=== PATIENT | female | born 1975 | race Caucasian/White ===

== ENCOUNTER 2019-05-16 15:33 | Emergency (ER) | payer OTHER ==
--- NOTE | 2019-05-16 16:45 | XRAY Report ---
Reason: Chest pain Procedure Date: 05/16/2019 Accession Number: [id number] / [id number] Procedure: XR - Chest 1 View X-Ray CPT Code: 59819 Final Report FULL RESULT: EXAM: CHEST RADIOGRAPHY EXAM DATE: 05/16/2019 04:37 PM. CLINICAL HISTORY: Chest pain. COMPARISON: CHEST 2 VIEW PA/LAT 09/20/2015 7:22 AM. TECHNIQUE: 1 view. FINDINGS: Lungs/Pleura: No focal opacities evident. No pleural effusion. No pneumothorax. Mediastinum: Within exam limitations, the cardiomediastinal contour is normal. Other: None. IMPRESSION: Normal single view chest. RADIA
[2019-05-16 17:05] LABS: BASOPHILS # (AUTO) 0.1 10^3/uL (0.0-0.1); BASOPHILS % (AUTO) 0.8 %; EOSINOPHILS # (AUTO) 0.1 10^3/uL (0.0-0.7); EOSINOPHILS % (AUTO) 1.1 %; HGB - HEMOGLOBIN 14.5 g/dL (12.0-16.0); LYMPHOCYTES # (AUTO) 2.3 10^3/uL (1.5-3.5); LYMPHOCYTES % (AUTO) 36.7 %; MEAN CORPUSCULAR HEMOGLOBIN 29.1 pg (27.0-31.0); MEAN CORPUSCULAR HGB CONC 32.7 g/dL (32.0-36.0); MEAN CORPUSCULAR VOLUME 88.8 fL (81.0-99.0); MEAN PLATELET VOLUME 11.9 fL (7.9-10.8); MONOCYTES # (AUTO) 0.5 10^3/uL (0.0-1.0); MONOCYTES % (AUTO) 7.1 %; NEUTROPHILS # (AUTO) 3.5 10^3/uL (1.5-6.6); NEUTROPHILS % (AUTO) 54.1 %; RED BLOOD COUNT 4.99 10^6/uL (4.20-5.40); RED CELL DISTRIBUTION WIDTH 12.5 % (12.0-15.0); WHITE BLOOD COUNT 6.4 x10^3/uL (4.8-10.8)
[2019-05-16 17:23] LABS: ALBUMIN 4.5 g/dL (3.2-5.5); ALBUMIN/GLOBULIN RATIO 1.7 (1.0-2.2); BILIRUBIN,TOTAL 0.6 mg/dL (0.2-1.0); CALCIUM 9.3 mg/dL (8.5-10.3); CREATININE 0.8 mg/dL (0.4-1.0); MAGNESIUM 2.7 mg/dL (1.7-2.8); TOTAL PROTEIN 7.2 g/dL (6.7-8.2)
[2019-05-16 17:31] LABS: PLATELET ESTIMATE, MANUAL DECREASED (<130,000) (NORMAL); PLATELET MORPHOLOGY PLATELET CLUMPING (NORMAL); RBC MORPHOLOGY (MULTIPLE) NORMAL APPEARANCE (NORMAL)
[2019-05-16 18:21] VITALS: BP 171/103
--- NOTE | 2019-05-16 18:41 | ED Physician Documentation ---
PD HPI CHEST PAIN - Stated complaint Stated Complaint: DIZZY, BACK PX, PALPITATIONS - Chief complaint Chief Complaint: Cardiac - History obtained from History obtained from: Patient - History of Present Illness Timing - onset: How many days ago (several) Timing - onset during: No: Exertion Timing - duration: Minutes (5-10 mintues at a time) Timing - details: Abrupt onset, Intermittant Quality: Tightness, Throbbing (feeling of pounding and fast heart rate in episodes, about 2-3 times daily, lasting minute up to 10 minutes longest. She noted her BP to be high at times and normal 130-140 systolic, at other times. The home monitor showed heart rate from 130-170 with the episodes.) Location: Substernal Radiation: Back Worsened by: No: Exertion Associated symptoms: General Weakness, Palpitations, Other (has some caffeine use, not excess. Non smoker. No stimulant use. No dieting.). No: Shortness of air, Diaphoresis, Nausea, Feeling faint / dizzy Similar symptoms before: Has not had sx before Recently seen: Not recently seen Review of Systems Constitutional: denies: Fever, Chills Nose: denies: Rhinorrhea / runny nose, Congestion Throat: denies: Sore throat Cardiac: reports: Palpitations. denies: Pedal edema, Calf pain Respiratory: denies: Dyspnea, Cough GI: denies: Nausea, Vomiting, Diarrhea, Bloody / black stool Neurologic: denies: Focal weakness, Numbness, Difficulty speaking, Near syncope, Syncope, Altered mental status Endocrine: denies: Weight loss, Weight gain PD PAST MEDICAL HISTORY - Past Medical History Past Medical History: Yes Cardiovascular: None Respiratory: None Endocrine/Autoimmune: None GI: None [employer] INSPECTOR: None : None HEENT: None Psych: None Musculoskeletal: None Derm: None - Past Surgical History Past Surgical History: Yes HEENT: Tonsil/Adenoidectomy - Present Medications Home Medications: Ambulatory Orders Medication Instructions Recorded Confirmed Cyclobenzaprine [Flexeril] 10 mg PO TID PRN #20 tablet 09/20/15 Metoprolol Succinate 25 mg PO DAILY #20 tab.er.24h 05/16/19 - Allergies Allergies/Adverse Reactions: Allergies Allergy/AdvReac Type Severity Reaction Status Date / Time acyclovir AdvReac Intermediate Hives Verified 05/16/19 15:48 - Social History Does the pt smoke?: No Smoking Status: Never smoker Does the pt drink ETOH?: Yes Does the pt have substance abuse?: No - Family History Family history: reports: CAD, Other (heart valve disorders). denies: Aortic aneursym, Aortic dissection - Immunizations Immunizations are current?: Yes - POLST Patient has POLST: No PD ED PE NORMAL - Vitals Vital signs reviewed: Yes - General General: Alert and oriented X 3, No acute distress, Well developed/nourished - HEENT HEENT: Moist mucous membranes, Pharynx benign - Neck Neck: Supple, no meningeal sign, No adenopathy, Thyroid normal - Cardiac Cardiac: RRR, No murmur, No rub - Respiratory Respiratory: Clear bilaterally - Abdomen Abdomen: Soft, Non tender - Female Female : Deferred - Rectal Rectal: Deferred - Back Back: No CVA TTP - Derm Derm: Normal color, Warm and dry - Extremities Extremities: No edema, No calf tenderness / cord - Neuro Neuro: Alert and oriented X 3, No motor deficit, Normal speech Results - Vitals Vitals: Vital Signs - 24 hr 05/16/19 05/16/19 15:48 18:16 Temperature 36.5 C Heart Rate 86 67 Respiratory 16 14 Rate Blood Pressure 137/78 H 171/103 H O2 Saturation 99 100 Oxygen O2 Source Room air - EKG (time done) 15:59 Rate: Rate (enter#) (75) Rhythm: NSR Julian: Normal Intervals: Normal [place] QRS: Normal Ischemia: Normal ST segments. No: ST elevation c/w ischemia, ST depression - Labs Labs: Laboratory Tests 05/16/19 05/16/19 05/16/19 16:45 16:45 16:45 WBC 6.4 RBC 4.99 Hgb 14.5 Hct 44.3 MCV 88.8 MCH 29.1 MCHC 32.7 RDW 12.5 Plt Count TNP MPV 11.9 H Neut # (Auto) 3.5 Lymph # (Auto) 2.3 [place] # (Auto) 0.5 Eos # (Auto) 0.1 Baso # (Auto) 0.1 Absolute Nucleated RBC 0.00 Nucleated RBC % 0.0 Manual Slide Review Indicated Platelet Estimate DECREASED (<130,000) Platelet Morphology PLATELET CLUMPING RBC Morph Micro Appear NORMAL APPEARANCE Sodium 141 Potassium 3.8 Chloride 105 Carbon Dioxide 25 Anion Gap 11.0 BUN 6 Creatinine 0.8 Estimated GFR (MDRD) 77 L Glucose 106 H Calcium 9.3 Magnesium 2.7 Total Bilirubin 0.6 AST 18 ALT 16 Alkaline Phosphatase 29 L Troponin I High Sens 4.0 B-Natriuretic Peptide Total Protein 7.2 Albumin 4.5 Globulin 2.7 Albumin/Globulin Ratio 1.7 Lipase 32 TSH 05/16/19 05/16/19 16:45 16:45 WBC RBC Hgb Hct MCV MCH MCHC RDW Plt Count MPV Neut # (Auto) Lymph # (Auto) [place] # (Auto) Eos # (Auto) Baso # (Auto) Absolute Nucleated RBC Nucleated RBC % Manual Slide Review Platelet Estimate Platelet Morphology RBC Morph Micro Appear Sodium Potassium Chloride Carbon Dioxide Anion Gap BUN Creatinine Estimated GFR (MDRD) Glucose Calcium Magnesium Total Bilirubin AST ALT Alkaline Phosphatase Troponin I High Sens B-Natriuretic Peptide 11 Total Protein Albumin Globulin Albumin/Globulin Ratio Lipase TSH 2.28 - Rads (name of study) chest xray Radiology: Prelim report reviewed (no acute process), See rad report PD MEDICAL DECISION MAKING - ED course Complexity details: considered differential (sounds less like simple palpitations and more likely SVT or atrial fib. Will need Holter and ECHO. referred to her PCP at [facility] and also Cardiology. Could trial metoprolol meanwhile, and cautioned on reasons to hold/stop med (low BP with systolic less than 115-120, or heart rate less than 60, lightheaded). ), d/w patient Departure - Departure Disposition: 01 Home, Self Care Clinical Impression: Rapid palpitations Condition: Stable Record reviewed to determine appropriate education?: Yes Instructions: ED Palpitations Follow-Up: Melodie Meehan ARNP [Primary Care Provider] - [facility] - Card [Provider Group] Prescriptions: Metoprolol Succinate 25 mg PO DAILY #20 tab.er.24h Comments: Stay well-hydrated. You could add a little bit extra potassium supplement but otherwise your lab value was within normal limits. There is no sign of heart failure or heart injury based on your EKG and blood tests. Given your description of the episodes and the heart rate during it, I be concerned for potential irregular heart rhythms such as atrial fibrillation or SVT. Alternatively may be just palpitations occurring frequently. You could take a low-dose beta-brandon called metoprolol daily to see if it reduces the amount of episodes and symptoms. Discontinue if you find yourself lightheaded or your blood pressure or heart rate are a bit too low. Otherwise follow-up with your primary care for potential cardiology referral or you could call the [facility] cardiology group and see if they will take her primary referral from the ER. I would consider further testing of a heart rhythm monitor called a Holter monitor and potentially an ultrasound of the heart called an echocardiogram. We are not able to set up the Holter monitor through the ER. Discharge Date/Time: 05/16/19 19:21
== END 2019-05-16 19:21 | disposition home or self-care (01) ==
LOC: ED 15:33
DX: R00.2 Palpitations (principal)
CPT/HCPCS: 36415; 71045; 80053; 83690; 83735; 83880; 84443; 84484; 85025; 93005; 99284

== ENCOUNTER 2019-10-04 06:55 | Outpatient (CLI) | payer OTHER ==
[2019-10-04 07:22] LABS: CALCIUM 9.3 mg/dL (8.5-10.3); CREATININE 0.8 mg/dL (0.4-1.0)
== END 2019-10-04 06:56 | disposition home or self-care (01) ==
LOC: LAB 06:55
PROVIDERS: ATTEND Internal Medicine Cardiovascular Disease
DX: I10 Essential (primary) hypertension (principal)
CPT/HCPCS: 36415; 80048